=== PATIENT | female | born 1965 | race Caucasian/White ===

== ENCOUNTER 2017-05-06 09:54 | Inpatient (IN) | payer OTHER ==
[~2017-05-06] VITALS: Ht 180.3 cm; Wt 130.4 kg
[2017-05-06 10:25] LABS: BASO % 0.5 % (0.0-1.0); EOS # 0.1 10^3/uL (0.0-0.50); EOS % 1.8 % (0.0-3.0); IMMATURE GRANULOCYTE % 0.3 % (0-0); LYMPH # 1.2 10^3/uL (1.5-4.5); MEAN CORPUSCULAR HEMOGLOBIN 29.8 pg (27.0-33.0); MEAN CORPUSCULAR HGB CONC 32.5 g/dl (32.0-36.5); MEAN CORPUSCULAR VOLUME 91.7 fl (80.0-96.0); MONO # 0.7 10^3/uL (0.0-0.8); MONO % 8.6 % (0.0-5.0); NEUTROPHILS # 5.7 10^3/uL (1.8-7.7); NEUTROPHILS % 73.8 % (36.0-66.0); PLATELET COUNT, AUTOMATED 222 10^3/uL (150-450); RED CELL DISTRIBUTION WIDTH 13.9 % (11.5-14.5); WHITE BLOOD COUNT 7.7 10^3/uL (4.0-10.0)
[2017-05-06 10:53] LABS: ALBUMIN 3.2 GM/DL (3.2-5.2); ALBUMIN/GLOBULIN RATIO 1.07 (1.00-1.93); ALKALINE PHOSPHATASE 60 U/L (45-117); ALT/SGPT 61 U/L (12-78); ANION GAP 11 MEQ/L (8-16); AST/SGOT 46 U/L (7-37); BILIRUBIN,DIRECT 0.4 MG/DL (0.0-0.2); BILIRUBIN,TOTAL 2.6 MG/DL (0.2-1.0); BLOOD UREA NITROGEN 24 MG/DL (7-18); CALCIUM LEVEL 8.1 MG/DL (8.5-10.1); CARBON DIOXIDE LEVEL 22 MEQ/L (21-32); CHLORIDE LEVEL 108 MEQ/L (98-107); CREATININE FOR GFR 1.12 MG/DL (0.55-1.02); GLUCOSE, FASTING 137 MG/DL (70-105); POTASSIUM SERUM 4.1 MEQ/L (3.5-5.1); SODIUM LEVEL 141 MEQ/L (136-145); TOTAL PROTEIN 6.2 GM/DL (6.4-8.2)
[2017-05-06] MEDS ORDERED: DIGOXIN INJ 0.5 MG/2 ML AMP (J1160) IV STA (11:07)
[2017-05-06] MEDS ORDERED: METOPROLOL SUCC *XL* 25MG TAB (TopROL *XL*) PO ONE ×2 (11:15→17:45)
[2017-05-06] MEDS ORDERED: APIXABAN 5 MG TAB (ELIQUIS) PO ONE (11:15)
--- NOTE | 2017-05-06 11:28 | REP ---
AP portable chest: 05/06/2017. Comparison PA lateral chest 04/22/2017. Clinical history: Chest pain. AP semi-erect lordotic portable chest reviewed. Heart size is enlarged but magnified further by the lordotic portable technique. There is engorgement of the pulmonary veins. This suggests some venous hypertension. The aorta is without aneurysm. Airway is midline. CP angles are sharply defined. There is no gross effusion, although posterior and lower lung zones are poorly evaluated on a lordotic chest. No dense consolidation with air bronchograms. Mild basilar atelectatic change may be present. No nasir edema. Impression: 1. Enlargement of the cardiac silhouette with further magnification by lordotic portable chest. 2. Pulmonary venous hypertension without nasir edema, definite effusion or dense consolidation. Some basilar atelectatic change. Signed by Jeff Garcia MD 05/06/2017 08:29 P
[2017-05-06 11:32] LABS: INR 1.29
[2017-05-06] MEDS ORDERED: ONE-TAB33 PO (11:41)
[2017-05-06 11:47] LABS: FREE T4 1.26 NG/DL (0.76-1.46)
--- NOTE | 2017-05-06 12:35 | ECGEPIP ---
Stationary ECG Study [facility] - ED Test Date: 2017-05-06 Pat Name: VIJAY MATHEWS Department: Room: - Gender: F Options Advisor: lilian : 1965 Requested By: CECILE Marte Order Number: [id number] Reading MD: Ani Manning Measurements Intervals [place] Rate: 160 P: SD: 0 QRS: 56 QRSD: 98 T: 62 QT: 289 QTc: 472 Interpretive Statements ATRIAL FIBRILLATION WITH RAPID VENTRICULAR RESPONSE NONSPECIFIC T-WAVE ABNORMALITY ABNORMAL RHYTHM ECG LOW VOLTAGE LIMB NO PRIOR FOR COMPARISON Electronically Signed On 05-06-2017 12:35:41 EST by Ani Manning
[2017-05-06] MEDS ORDERED: DIGOXIN INJ 0.5 MG/2 ML AMP (J1160) IV ONE ×3 (17:45→21:15)
[2017-05-06] MEDS ORDERED: DIGOXIN 0.125 MG TAB PO ONE (19:15)
[2017-05-06] MEDS ORDERED: METOPROLOL TART 50 MG TAB PO ONE (19:15)
[2017-05-06] MEDS ORDERED: FUROSEMIDE 40 MG/4 ML VIAL (J1940) IV ONE (19:15)
[2017-05-06] MEDS ORDERED: zolPIDEM TARTRATE 5 MG TAB PO PRN (19:15)
[2017-05-06 20:00] VITALS: BP 119/93
[2017-05-06 20:10] LABS: CHOLESTEROL LEVEL 110 MG/DL (<200); TRIGLYCERIDES LEVEL 103 MG/DL (<150)
[2017-05-06] MEDS: APIXABAN 5 MG TAB (ELIQUIS) PO SCH (21:29)
[2017-05-06] MEDS: DOCUSATE SODIUM 100 MG CAP PO SCH (21:29)
--- NOTE | 2017-05-06 21:30 | HPE ---
DATE OF ADMISSION: 05/06/2017 ATTENDING PHYSICIAN: Chuck Erazo MD PRIMARY CARE PHYSICIAN: Ever Denise MD CHIEF COMPLAINT: Increasing shortness of breath, lower leg swelling, and new onset atrial fibrillation. 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 Ever Denise. Describes be able to walk considerable distances at the all day. 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 Since the beginning of April at the time she had a "flu shot" claims to have developed a nonproductive cough, slowly worsening effort dyspnea, weight gain. Was seen by her primary physician in mid April and given a cough suppressant and suggested a cardiology referral but the patient wished to defer this at that time. Over the course of the past few weeks has developed worsening shortness of breath, orthopnea, intermittently having to get up and sleep in a recliner the past 1 or 2 weeks. Becomes dyspneic even walking at a slow pace. Also described effort related, lightheadedness or faintness and worsening sense of strength. Reports increasing lower leg swelling with a total weight gain of 34 pounds over the course of the past month or so. Discussed this with her doctor who saw her this morning. Electrocardiogram was obtained showing new onset atrial fibrillation with a rapid ventricular response. She was advised to go directly to [facility] emergency room. Initially, evaluated by Dr. Shoaib Del Valle, was found to be in congestive heart failure with atrial fibrillation and rapid ventricular response. I recommended administration of digoxin 0.5 mg IV, metoprolol 50 mg by mouth, and Eliquis 5 mg. I accepted the patient for admission to hospital. OTHER CARDINAL CARDIAC SYMPTOMS: Denies any problem with effort related chest, jaw, or arm discomforts. Unaware of a previous abnormal EKG. 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 Had been a smoker since age 15 until 37 years of age. No more than one half pack per day. Claims not to have had a prior cough and never has had hemoptysis or pneumonia. Unaware of any allergy, sinus problems or asthma. No knowledge of prior rheumatic fever or heart murmur. No known hypertension or cardiomegaly. Has had a lifelong weight problem (weighed 190 pounds at age 16; maximum weight currently at 325 pounds, having gained 34 pounds in the past 1 - 2 months). As mentioned has had no awareness of her heart action. No previously documented rhythm disturbance. Does have a family history of premature sudden cardiac in her brother, age 52, attributed to myocardial infarction. Family history of atrial fibrillation. Her mother was on warfarin for many years. No history of congenital deafness. Drinks only one cup of caffeinated coffee, two cups of caffeinated tea, but avoids caffeinated soda. Will drink no more than one or two alcoholic beverages monthly. Remote history of thyroid dysfunction - (question) overactive. Given pills for a brief period. Only in the remote past. Avoids [id number] decongestants, energizers, or dietary aids. Effort related, lightheadedness or faintness recently only. Very remote faint post childbirth. No history of falling recently. Denies lateralizing neurological deficit, flank pain, hematuria or blue toe syndrome. No history of claudication. Previous varicose vein stripping 2 years ago. No history of phlebitis. Ankle swelling as mentioned above only the past several weeks. CORONARY RISK FACTORS: Obesity. Remote smoker. Family history of premature sudden cardiac /premature coronary disease. Borderline elevated cholesterol in the past. No known diabetes mellitus. OTHER KNOWN PAST MEDICAL HISTORY: One normal vaginal delivery. Remote tonsillectomy. Varicose vein stripping bilaterally as an outpatient in [place] 2 years ago. REVIEW OF SYSTEMS: Occasional headache, but no recent fevers, chills or night sweats. Wears corrective lenses. Has upper partial plate, but otherwise her own teeth. Denies any problems with dysphagia, reflux or heartburn. No abdominal pains. Has noticed a slight change in her bowel habit with her recent problems. No history of GI bleeding. Nocturia times one is chronic. No dysuria or hematuria. No history of kidney stones. No arthritic complaints. History of dry skin, but no rashes, lumps or bumps. No environmental allergies. All other systems review is negative. MEDICATIONS: Taking a multivitamin one a day menopause formula and had been receiving a cough suppressant that was not particularly effective for her problems. ALLERGIES: None known. PHYSICAL EXAMINATION: Constitutional: Morbidly obese pleasant middle-aged lady lying with the head of the bed elevated 45 degrees. No pallor or icterus. Vital signs: Heart rate 120 bpm and irregular, blood pressure 137/68 supine, 144/76 sitting with legs dependent (both arms. Respiratory rate 18 per minute, oxygen saturation 97% on room air. Afebrile. Weight 325 pounds, height 71 inches, body surface area 2.79 m2, BMI 45.3 Eyes: Normal conjunctiva and lids. No xanthelasma. ENT/mouth: Upper dental bridge. Normal oral moisture. No central cyanosis. Neck: Trachea midline. Thyroid not enlarged. Neck veins were significantly elevated approximately 12 cm above the sternal angle. Respiratory: Increased anteroposterior chest diameter with fairly good chest expansion. Few bibasilar inspiratory rales posteriorly. No expiratory rhonchi. Cardiovascular: Apical impulse not palpable. Heart sounds were somewhat distant and variable with her arrhythmia. Unable to detect a gallop or murmur. Normal carotid upstrokes, but variable volume related to her arrhythmia. Upper extremity pulses and pedal pulses were symmetrical and normal. Abdominal aorta and femoral pulses not palpable because of her obesity. No obvious varicose veins at this time, but has pitting edema extending from her feet up to her thighs and over her sacrum and lower lumbar spine. Extremities: No clubbing, peripheral cyanosis or splinter hemorrhages. GI: Grossly obese abdomen, soft, nontender with lower abdominal pannus. Unable to detect hepatosplenomegaly. Normal bowel sounds. Rectal examination was performed earlier by the ER physician and was negative for occult blood. Neuro/Psych: Bright, alert and oriented. Gave a lucid history. Eye, facial, and extremity movements were symmetrical and normal. No abnormal movements. Musculoskeletal: No obvious joint deformities. Normal-appearing muscular strength and tone. Normal spine curvature. INVESTIGATIONS: Portable upright chest x-ray reviewed independently from earlier this morning shows obvious cardiomegaly even allowing for this portable technique. Normal thoracic aorta but obvious pulmonary venous congestion and interstitial edema. EKG: A tracing taken upon her arrival today showed atrial fibrillation with rapid ventricular response averaging 160 bpm. Very low QRS voltages with somewhat slow precordial R-wave progression related to her body habitus. Subtle diffuse nonspecific ST/T-wave abnormalities. No clear obvious evidence of prior infarction. No prior EKG for comparison. Blood work taken earlier shows a hemoglobin of 13. Normal white blood cell count and platelet count. Her PT/INR were slightly elevated at 16.3/1.29, but normal PTT. Her electrolytes were normal. The BUN slightly elevated at 24, creatinine 1.12, random glucose 137. Abnormal liver function studies with a total bilirubin of 2.6. Direct bilirubin of 0.4, slightly elevated SGOT, but normal SGPT and alkaline phosphatase. Serum albumin 3.2. Normal serum calcium of 8.1. Ultra sensitive TSH was normal at 3.3. Pro BNP level was markedly elevated at 4598. Troponin I and urinalysis are pending at this time. PROVISIONAL DIAGNOSIS: 1. Heart failure (unspecified) - acute: The patient has obvious symptoms and signs of biventricular congestion of a marked degree with associated 34-pound weight gain in the past 4-6 weeks, believed to be related to underlying hypertension versus cardiomyopathy of obesity, aggravated by recent onset of atrial fibrillation with rapid ventricular response. She will be admitted to a telemetry unit for close observation. She will be maintained on a modest salt, fluid and caloric diet. Lasix will be administered every 6 hours to ensure a net negative fluid balance of 1500 mL daily as long she has signs of congestion. We will also start low-dose spironolactone. Efforts to control her rhythm discussed below. She will also be started on oral anticoagulation for her arrhythmia that should obviously suffice for prophylaxis against deep venous thrombosis (DVT). An echocardiogram/Doppler study will be obtained to further define cardiac chamber sizes and function. We will request the assistance of the cardiac rehabilitation program for CHF education and gradual ambulation. Her chemistry will be monitored closely. 2. Atrial fibrillation/recent onset: Undoubtedly, this is a reflection of underlying structural heart disease. It is possible a recent upper respiratory tract infection may have triggered her arrhythmia. Despite the rapidity of her rhythm disturbance she is actually unaware of her heart action. Fortunately, she has been free of symptom or sign of embolic phenomenon. Our plan will be to obtain an echocardiogram/Doppler study again to further define her underlying heart disease. I do not detect a murmur to suggest mitral insufficiency. Digoxin and metoprolol tartrate will be used in combination to control of ventricular response. As mentioned above she will be started on Eliquis 5 mg twice a day. Note is made of her normal thyroid function. Efforts to consider restoring her sinus mechanism will be determined by her echocardiographic results. 3. Abnormal EKG: Has multiple coronary risk factors including her obesity, history of hypercholesterolemia and family history of premature coronary heart disease as well as her former smoking history. Does not have any clear symptoms to suggest myocardial ischemia. Her EKG, ST/T-wave abnormalities of course are nonspecific. Troponin I from earlier this morning is pending. Will obtain a followup EKG and troponin I in the morning. The most important focus would be relief of her congested state as well as control of her ventricular response. She will be on protective combination metoprolol and Eliquis at this time. 4. Cardiomegaly: As mentioned her portable upright chest x-ray shows a significant increased cardiac silhouette, likely related to cardiac enlargement related to her morbid obesity +/- hypertension. Antifailure measures as mentioned above. Echocardiogram/Doppler study will be obtained. Serial EKGs and troponin I have been requested. 5. Sleep disturbance: With her morbid obesity, she does describe snoring history and restless sleeping with daytime sleepiness, certainly suggestive of obstructive sleep apnea. Our plan would be to consider at least a screening nocturnal oximetry once we have relieved her congested state. 6. Morbid obesity (BMI 45.3): We have discussed frankly the negative impact of this major problem on her cardiopulmonary well-being. Undoubtedly, it is playing a major role in causing her cardiac enlargement, predisposition to atrial fibrillation and to her congestive heart failure. The crucial importance of dietary efforts and regular graduated exercise to lose weight has been emphasized. Should these noninvasive measures be unsuccessful, we would encourage she at least seek bariatric consultation to hear of potential alternatives. I have discussed my impressions and plans with the patient in detail who appears to understand and agree. I anticipate she will be in hospital for least 4 or 5 days.
[2017-05-07] VITALS (8 sets, daily range): BP systolic 122–164; BP diastolic 65–92
[2017-05-07] MEDS: FUROSEMIDE 40 MG/4 ML VIAL (J1940) IV SCH ×4 (00:52→17:02)
[2017-05-07] MEDS: METOPROLOL TART 50 MG TAB PO SCH ×4 (00:53→17:13)
[2017-05-07 06:34] LABS: ANION GAP 5 MEQ/L (8-16); BLOOD UREA NITROGEN 24 MG/DL (7-18); CALCIUM LEVEL 8.4 MG/DL (8.5-10.1); CARBON DIOXIDE LEVEL 33 MEQ/L (21-32); CHLORIDE LEVEL 104 MEQ/L (98-107); CREATININE FOR GFR 1.19 MG/DL (0.55-1.02); GLOMERULAR FILTRATION RATE 50.3 (>51); GLUCOSE, FASTING 81 MG/DL (70-105); PHOSPHORUS LEVEL 4.2 MG/DL (2.5-4.9); POTASSIUM SERUM 3.7 MEQ/L (3.5-5.1); SODIUM LEVEL 142 MEQ/L (136-145)
[2017-05-07] MEDS: DIGOXIN 0.25 MG TAB PO SCH (08:48)
[2017-05-07] MEDS: APIXABAN 5 MG TAB (ELIQUIS) PO SCH ×2 (08:48→21:09)
[2017-05-07] MEDS: DOCUSATE SODIUM 100 MG CAP PO SCH ×2 (08:48→21:07)
[2017-05-07] MEDS: SPIRONOLACTONE 12.5MG PER 1/2 TABLET PO SCH (08:48)
--- NOTE | 2017-05-07 09:33 | ECGEPIP ---
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 Low voltages with slow precordial R-wave progression, And persistent S waves in V5 and V6; body habitus versus pulmonary disease. Rule out prior septal injury. Nonspecific ST/T-wave abnormalities. Slower rate than 05/06/17. Electronically Signed On 05-07-2017 9:32:51 EST by Chuck Erazo
[2017-05-07] MEDS: POTASSIUM CHLORIDE 10 MEQ SR TABLET PO SCH ×2 (17:13→21:11)
--- NOTE | 2017-05-07 17:15 | IPN ---
DATE: 05/07/2017 CARDIOLOGY PROGRESS NOTE SUBJECTIVE: The patient feels dramatically improved from her admission. Breathing and dependent edema have improved with her negative fluid balance. Has been up in the room without lightheadedness or dizziness. Continues to be free of any awareness of heart action or any chest discomfort. Appears to be tolerating her medications without adverse effect. OBJECTIVE: Obese, barrel-chested, middle-aged lady, lying comfortably with the head of the bed elevated 30 degrees. Heart rate 86 beats per minute (BPM) and irregular, blood pressure 118/68, 122/66 sitting with legs dependent, respiratory 18 per minute, oxygen saturation 95% on room air. Afebrile. Weight today is down almost 6 kg from yesterday with recorded negative fluid balance to date in hospital of approximately 6 liters of fluid. No pallor or icterus. Normal oral moisture. No central cyanosis. Trachea midline. Neck veins still 10-12 cm above the sternal angle. Increased anteroposterior chest diameter with improved air entry over both lung zazueta. No current adventitious sounds. Apical impulse not palpable. Heart sounds still distant with slower rate. We still cannot order picker any sign of heart murmur. Soft, obese abdomen. Continues to have impressive pitting edema of both lower extremities. 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 EKG: Tracing today shows again underlying atrial fibrillation with a controlled ventricular response averaging 95 beats per minute. Still shows low voltages with slow precordial R-wave progression and persistent S waves in V5 and V6, in keeping with her body habitus versus pulmonary disease. Could not rule out a prior septal injury. Nonspecific ST/T-wave abnormalities, perhaps somewhat improved from her tracing yesterday showing a heart rate of 160. LABORATORY DATA: With her diuresis has developed a slight metabolic alkalosis with bicarbonate up to 33. Potassium has decreased to 3.7. BUN and creatinine are stable at 24 and 1.2. Fasting glucose this morning 81. Albumin 3.0. Calcium 8.4. Troponin I level today again was negative. Urinalysis was normal. No evidence of microscopic hematuria. IMPRESSION/PLAN: 1. Heart failure (unspecified)//acute: Has made impressive progress over the course the past 24 hours. As mentioned above, remarkable negative fluid balance and diuresis with even low-dose diuretic therapy. Has tolerated this with development of only slight metabolic alkalosis and a drop in her potassium. We will start her on low-dose potassium chloride to correct this. BUN and creatinine are stable despite the negative fluid balance. An echocardiogram/Doppler study was done earlier today and will be reviewed personally. Cardiac rehabilitation program has yet to visit with her for congestive heart failure (CHF) education. At this point, we will plan on continued combination digoxin, bisoprolol, intravenous (IV) Lasix, and spironolactone. 2. Atrial fibrillation (persistent): With combination digoxin and metoprolol, her ventricular response at this time is controlled. We will review her echocardiogram and assess left atrial size and likelihood of her arrhythmia reversing with relief of her congested state. In the meantime, remains on combination digoxin and metoprolol and Eliquis for prophylaxis against systemic thromboembolic event. Has not experienced any bleeding complication. 3. Abnormal EKG: Remains free of symptomatic myocardial ischemia. Repolarization abnormalities are less with her slower heart rate, and serial Troponin I levels are negative. Continues on protective metoprolol and Eliquis as mentioned. 4. Cardiomegaly: We are hoping to clarify this with her echocardiogram, which was done earlier today. 5. Sleep disturbance: We have not documented any oxygen desaturations while she has been in hospital to date, but her his history is suggestive of obstructive sleep apnea with snoring and daytime sleepiness. As mentioned, prior to her discharge home, once she is at her effective dry weight, our plan is to obtain an official nocturnal oximetry as a screen. 6. Morbid obesity (body mass index [BMI] 43.5): As mentioned above, has lost a tremendous amount of weight within 24 hours because of her diuretic therapy. We have again discussed the crucial importance of a low-carbohydrate diet, especially with her slight glucose intolerance. Will continue with her parenteral diuretic therapy for the time being and, hopefully cardiac rehabilitation will be able to visit with her tomorrow. I still anticipate she will be in hospital for an additional 48 hours.
--- NOTE | 2017-05-07 18:14 | ECHO ---
DATE OF PROCEDURE: 05/07/2017 AGE: 52 GENDER: Female. HEIGHT: 71 inches. WEIGHT: 324 pounds BODY SURFACE AREA: 2.56 meters squared inpatient PCU room 3214. REFERRING PHYSICIAN: Dr. Erazo with copy to Dr. Denise INDICATION: Heart failure (unspecified) new onset atrial fibrillation. MEASUREMENTS: 2-D measurements: RV - 5.2 cm LV- 5.6 cm Septum 1.0 cm Posterior wall 1.0 cm Aortic root 3.4 cm Proximal ascending aorta 3.6 cm LA- 4.4 cm LVEF- 35-40% Doppler measurements: AV - 0.98 m/s LVOT- 0.8 m/s LVOT diameter- 2.3 cm MV-E 96 Early mitral deceleration time 109 milliseconds E prime-10 E/Eprime ratio 9.6 PV 0.7 m/s Pulmonary artery acceleration time 77 milliseconds PASP- 47 mmHg IVC 2.9 cm COMMENTS: Underlying atrial fibrillation with controlled ventricular response. No intraventricular conduction disturbance. At least moderately prominently dilated left atrium (from the apical four-chamber projection). The left ventricle was at least mild to moderately dilated. Right heart chambers were prominently dilated. LV wall thickness was normal. On real-time imaging from the parasternal and apical projections there appeared to be proximal septal akinesis. Other rosas were mild to moderately hypokinetic. Normal with "low flow" appearance to leaflet motion. Three equal size aortic cusps with marginally thickened cusp edges and adequate cusp separation but premature cusp closure in keeping with a reduced forward stroke volume. Normal aortic root size with slightly dilated proximal ascending aorta. No apparent intracardiac mass or pericardial effusion. Color flow Doppler study taken from the parasternal and apical projection showed trace aortic, at least mild mitral and moderate to moderately severe tricuspid insufficiency. Guided continuous wave Doppler of her aortic valve showed a normal peak systolic velocity against LV outflow tract obstruction. Pulsed and continuous wave Doppler of her LV inflow tract taken from the apical four-chamber projection showed normal diastolic filling velocities against mitral stenosis. There was only early diastolic / passive filling pattern as we would expect with atrial fibrillation. There was a restrictive impairment of LV diastolic function with significantly abbreviated early mitral deceleration time. Pulsed and continuous wave Doppler of her pulmonary trunk showed a normal peak systolic velocity against RV outflow tract obstruction. Her pulmonary acceleration time was abbreviated consistent with significantly elevated pulmonary vascular resistance and least moderate pulmonary hypertension. We attempted to further estimate her right ventricular systolic pressure using guided continuous wave Doppler of her tricuspid valve but could not get a clear spectral envelope despite the observed insufficiency because of the eccentric nature of the regurgitate. Her inferior vena cava was prominently dilated with virtually absent respiratory collapse in keeping with an elevated central venous pressure. CONCLUSIONS: At least mildly dilated left ventricle with septal akinesis but otherwise global mild to moderate hypokinesis at least moderate impairment of global resting systolic function. At least moderately dilated left atrium with Doppler of features in keeping with an elevated mean left atrial pressure. Moderately dilated and hypokinetic right heart chambers with Doppler evidence of at least moderate pulmonary hypertension. Prominently dilated inferior vena cava with absent respiratory collapse consistent with a central venous pressure of at least 20 plus mmHg. Subtle aortic valvular sclerosis without stenosis and only trace insufficiency. Slightly dilated proximal ascending aorta. Normal-appearing mitral valvular apparatus with mild insufficiency.
[2017-05-08] VITALS (7 sets, daily range): BP systolic 128–141; BP diastolic 64–83
[2017-05-08 06:10] LABS: ALBUMIN 2.8 GM/DL (3.2-5.2); CALCIUM LEVEL 8.2 MG/DL (8.5-10.1); CREATININE FOR GFR 1.05 MG/DL (0.55-1.02); GLOMERULAR FILTRATION RATE 58.1 (>51)
[2017-05-08] MEDS: FUROSEMIDE 40 MG/4 ML VIAL (J1940) IV SCH ×4 (06:50→17:02)
[2017-05-08] MEDS: METOPROLOL TART 50 MG TAB PO SCH ×4 (06:50→17:01)
[2017-05-08] MEDS: DIGOXIN 0.25 MG TAB PO SCH (09:07)
[2017-05-08] MEDS: DOCUSATE SODIUM 100 MG CAP PO SCH ×2 (09:07→20:19)
[2017-05-08] MEDS: APIXABAN 5 MG TAB (ELIQUIS) PO SCH ×2 (09:07→20:19)
[2017-05-08] MEDS: SPIRONOLACTONE 12.5MG PER 1/2 TABLET PO SCH (09:08)
[2017-05-08] MEDS: POTASSIUM CHLORIDE 10 MEQ SR TABLET PO SCH ×3 (09:08→16:17)
[2017-05-08] MEDS ORDERED: ACETAMINOPHEN TAB 650MG DOSE (2X325MG) PO PRN (11:15)
[2017-05-08] MEDS ORDERED: SLF 3 ML SYR IV PRN (17:15)
[2017-05-08] MEDS: SLF 3 ML SYR IV SCH (20:21)
[2017-05-08] MEDS ORDERED: LISINOPRIL 5 MG TAB PO SCH (21:00)
--- NOTE | 2017-05-09 01:07 | IPN ---
DATE OF SERVICE: 05/08/2017 Cardiology Progress Note SUBJECTIVE: The patient has been up walking short distances in the junior without shortness of breath, chest discomfort or dizziness. Has been tolerating her medications well and continues to diuresis without problems. OBJECTIVE: Pleasant, morbidly obese, middle-aged woman lying comfortably with the head of bed elevated 30 degrees. No pallor or cyanosis. Normal oral moisture. Heart rate 88 beats per minute and irregular, blood pressure 115/60 supine, unchanged upon sitting with legs dependent, respiratory rate 16, oxygen saturation 97%. Afebrile. Not recorded. Normal oral moisture. Trachea midline. Neck veins remain approximately 8 cm above the sternal angle. Increased anteroposterior chest diameter with good air entry over both lung zazueta with no current abnormal pulmonary adventitious sounds. Apical impulse not palpable. Heart sounds variable. No audible murmur. Soft abdomen. Currently has pitting edema three-quarters up both lower legs, but not above her knees - a clear improvement. property assessment monitor: This shows controlled ventricular response to her atrial fibrillation for the most part. Echocardiogram yesterday may show at least a mildly dilated and globally hypokinetic left ventricle with left ventricular ejection fraction (LVEF) 35-40% . Suspected to be related to her rapid ventricular response atrial fibrillation (tachycardia mediated cardiomyopathy). Right heart chamber sizes were moderately dilated and hypokinetic with Doppler evidence of at least moderately severe pulmonary hypertension. Her inferior vena cava was markedly dilated with reduced respiratory collapse consistent with markedly elevated central venous pressure. Her mitral valve appeared to be normal with mild insufficiency likely related to her global left ventricular hypokinesis. Subtle aortic valvular sclerosis with no more than very mild insufficiency and a mildly dilated proximal ascending aorta. No pericardial effusion. Despite a negative fluid balance yesterday of 3880 mL, chemistry this morning showed electrolyte balance with normalized bicarbonate and improved potassium on her potassium chloride replacement therapy. Despite her diuresis, BUN and creatinine have improved at 19 and 1.0 respectively. IMPRESSION/PLAN: 1. Heart failure (systolic and diastolic/acute): Findings likely related to combination of her chronic obesity, as well as a tachycardia mediated cardiomyopathy. We are cautiously optimistic her global systolic function will improve with control of her ventricular response to her atrial fibrillation. Currently on protective digoxin, metoprolol, and spironolactone. We are going to introduce at least low-dose lisinopril. Her metoprolol therapy will be switched to twice a day starting tomorrow morning. We are planning to switch her intravenous (IV) furosemide to oral torsemide 20 mg daily beginning in the morning. 2. Atrial fibrillation (persistent): As mentioned, her current combination digoxin and metoprolol is controlling her ventricular response. Left atrial size is not such that an attempt at cardioversion could not be made. There is a good chance with improved left ventricular function as we anticipate with time that her rhythm may very well convert anyway. For the time being, she remains on Eliquis and has not experienced any bleeding problems. 3. Abnormal EKG: Despite her risk factors, has remained free of symptomatic myocardial ischemia even with ambulation of the junior. Will be receiving protective combination metoprolol, lisinopril, and Eliquis. 4. Tachycardia mediated cardiomyopathy: As discussed above. 5. Currently controlled on combination medical therapy. Undoubtedly this has contributed to her left ventricular dysfunction and predisposition to atrial fibrillation. 6. Cor pulmonale (chronic): Echocardiographic findings of moderately dilated right heart chambers are consistent with pulmonary hypertension of some chronicity. With her documented history of snoring, restless sleep, and daytime sleepiness, I have no doubt she does have obstructive sleep apnea. We will plan on obtaining a nocturnal oximetry tomorrow night prior to possible discharge on Friday. 7. Morbid obesity (body mass index (BMI) 43.5): Has met with the dietitian today and appears to be motivated to affect a change. I am cautiously optimistic she will tolerate the planned medication changes mentioned above. We have tried to make these agents run on a twice a day schedule. I suspect she will be able to be discharged 05/10/2017. She continues to do well with cardiac rehabilitation education. [facility]
[2017-05-09 04:00] VITALS: BP 126/75
[2017-05-09] MEDS: SLF 3 ML SYR IV SCH ×3 (04:56→21:00)
[2017-05-09 05:27] LABS: MEAN CORPUSCULAR HEMOGLOBIN 29.4 pg (27.0-33.0); MEAN CORPUSCULAR HGB CONC 32.6 g/dl (32.0-36.5); MEAN CORPUSCULAR VOLUME 90.3 fl (80.0-96.0); PLATELET COUNT, AUTOMATED 208 10^3/uL (150-450); RED CELL DISTRIBUTION WIDTH 13.9 % (11.5-14.5); WHITE BLOOD COUNT 3.6 10^3/uL (4.0-10.0)
[2017-05-09 05:45] LABS: ALBUMIN 2.9 GM/DL (3.2-5.2); ALBUMIN/GLOBULIN RATIO 1.07 (1.00-1.93); ALKALINE PHOSPHATASE 50 U/L (45-117); ALT/SGPT 37 U/L (12-78); ANION GAP 7 MEQ/L (8-16); AST/SGOT 16 U/L (7-37); BILIRUBIN,TOTAL 2.2 MG/DL (0.2-1.0); BLOOD UREA NITROGEN 17 MG/DL (7-18); CALCIUM LEVEL 8.4 MG/DL (8.5-10.1); CARBON DIOXIDE LEVEL 33 MEQ/L (21-32); CHLORIDE LEVEL 102 MEQ/L (98-107); CREATININE FOR GFR 0.93 MG/DL (0.55-1.02); GLOMERULAR FILTRATION RATE > 60.0 (>51); GLUCOSE, FASTING 102 MG/DL (70-105); POTASSIUM SERUM 3.9 MEQ/L (3.5-5.1); SODIUM LEVEL 142 MEQ/L (136-145); TOTAL PROTEIN 5.6 GM/DL (6.4-8.2)
[2017-05-09] MEDS ORDERED: METOPROLOL TARTRATE 100 MG TAB PO SCH (06:00)
[2017-05-09 08:00] VITALS: BP 122/69
[2017-05-09] MEDS: METOPROLOL SUCC (TopROL XL) 100MG *XL* TAB PO SCH (08:54)
[2017-05-09] MEDS: DIGOXIN 0.25 MG TAB PO SCH (08:54)
[2017-05-09] MEDS: SPIRONOLACTONE 12.5MG PER 1/2 TABLET PO SCH (08:54)
[2017-05-09] MEDS: POTASSIUM CHLORIDE 10 MEQ SR TABLET PO SCH ×2 (08:55→21:00)
[2017-05-09] MEDS: TORSEMIDE 20 MG TAB PO SCH (08:55)
[2017-05-09] MEDS: DOCUSATE SODIUM 100 MG CAP PO SCH ×2 (08:55→20:59)
[2017-05-09] MEDS: APIXABAN 5 MG TAB (ELIQUIS) PO SCH ×2 (08:55→21:00)
--- NOTE | 2017-05-09 09:18 | REP ---
PA and lateral chest: Comparison is the portable chest dated 05/06/2017. The pulmonary vascular engorgement has resolved. There is cardiomegaly, unchanged. The abdifatah, mediastinum, and bony thorax are unremarkable. There is no pleural effusion. Signed by Brooks Hale MD 05/09/2017 09:09 A
[2017-05-09 12:00] VITALS: BP 106/81
[2017-05-09 16:00] VITALS: BP 127/86
--- NOTE | 2017-05-09 16:37 | IPN ---
DATE: 05/09/2017 at 4:12 p.m. SUBJECTIVE: Patient has been ambulating the hallways in the progressive care unit without any dyspnea. No orthopnea or paroxysmal nocturnal dyspnea (PND). She is aware that she still has ongoing bilateral leg edema. No chest pain or chest discomfort. No dizziness or lightheadedness. She is not aware of any palpitations. Overall she feels well. PHYSICAL EXAMINATION: A pleasant, morbidly obese woman who was not in any respiratory or psychologic distress. Temperature 97.4, pulse 63 (irregularly irregular), respiratory rate 16, blood pressure (BP) 106/81. Jugular venous pulsations were at 8 cm. First and second heart sounds were variable in intensity. No S3 appreciated. No murmurs appreciated. Respiratory expansion effort was good. No crackles or wheezes. Abdomen was soft and nontender with normal bowel sounds. Pitting edema of 1 cm was present at mid and distal tibial levels bilaterally. Intake and output for the 24 hours of 05/08/2017 showed net negative 2950 mL. Thus far today, she is net negative 1840 mL. Weight today was recorded as 136.7 kg. Laboratory work 05/09/2017 was reviewed: Sodium 142, potassium 3.9, chloride 104, CO2 of 33, BUN 17, creatinine 0.93, estimated GFR greater than 60, glucose 102. Total bilirubin elevated at 2.2. AST normal, ALT normal, alkaline phosphatase normal, albumin 2.9. ASSESSMENT AND PLAN: 1. Dilated cardiomyopathy, mostly likely [place] Heart Association (NYHA) functional class 2 at present, although she has been relatively sedentary here in the hospital. She remains decompensated on examination. I suspect that she has, at least in part, a tachycardia-mediated cardiomyopathy. The plan will be to reassess left ventricular (LV) systolic function objectively with a multigated acquisition (MUGA) scan about 3 months from now. Also of note, she will be considered for evaluation of her coronary artery disease to distinguish between nonischemic verus ischemic cardiomyopathy, and as an outpatient I will discuss with her the options of cardiac nuclear stress test (NST) versus diagnostic coronary angiography. Patient will start sacubitril/valsartan beginning tomorrow. Spironolactone will be discontinued, as she will be started on Entresto tomorrow. Continue metoprolol succinate 200 mg daily and digoxin. Metoprolol tartrate was discontinued. Patient will attend cardiac rehabilitation as an outpatient. Continue torsemide 20 mg daily. Continue potassium chloride 20 mEq twice a day. 2. Acute on chronic systolic and diastolic heart failure. As per dilated cardiomyopathy category above. 3. Persistent atrial fibrillation. Heart rate control is quite variable, but heart rate control has improved quite considerably since admission. Metoprolol tartrate was discontinued. She will continue on metoprolol succinate, currently 200 mg once daily. Also continue digoxin 0.25 mg daily for now. Continue Eliquis. 4. Morbid obesity. Patient has been placed on a DASH diet. She will progress in cardiac rehabilitation. 5. Snoring. Now that patient is so much better with regard to heart failure, the plan will be to obtain nocturnal oximetry while she is in hospital to screen for obstructive sleep apnea.
--- NOTE | 2017-05-09 16:54 | ECGEPIP ---
Stationary ECG Study [facility] Test Date: 2017-05-09 Pat Name: VIJAY MATHEWS Department: Room: [place] [address] Gender: F Program Project Analyst: [place] : [id number] Requested By: Chuck Erazo Order Number: [id number] Reading MD: Donell Joseph Measurements Intervals [place] Rate: 109 P: [place]: 0 QRS: 49 QRSD: 86 T: 118 QT: 288 QTc: 389 Interpretive Statements ATRIAL FIBRILLATION WITH RAPID VENTRICULAR RESPONSE Low limb lead voltages. Poor R-wave progression, nonspecific T-wave abnormalities. Electronically Signed On 05-09-2017 16:53:53 EST by Donell Joseph
[2017-05-09 20:00] VITALS: BP 114/73
[2017-05-09 23:59] VITALS: BP 115/77
[2017-05-10 04:00] VITALS: BP 111/82
[2017-05-10] MEDS: SLF 3 ML SYR IV SCH ×3 (06:00→20:13)
[2017-05-10 06:13] LABS: ALBUMIN 2.9 GM/DL (3.2-5.2); ANION GAP 5 MEQ/L (8-16); BLOOD UREA NITROGEN 18 MG/DL (7-18); CALCIUM LEVEL 8.3 MG/DL (8.5-10.1); CARBON DIOXIDE LEVEL 34 MEQ/L (21-32); CHLORIDE LEVEL 103 MEQ/L (98-107); CREATININE FOR GFR 0.96 MG/DL (0.55-1.02); GLOMERULAR FILTRATION RATE > 60.0 (>51); GLUCOSE, FASTING 95 MG/DL (70-105); PHOSPHORUS LEVEL 3.8 MG/DL (2.5-4.9); POTASSIUM SERUM 4.2 MEQ/L (3.5-5.1); SODIUM LEVEL 142 MEQ/L (136-145)
[2017-05-10 08:30] VITALS: BP 112/63
[2017-05-10] MEDS: APIXABAN 5 MG TAB (ELIQUIS) PO SCH ×2 (08:58→20:13)
[2017-05-10] MEDS: DOCUSATE SODIUM 100 MG CAP PO SCH ×2 (08:58→20:14)
[2017-05-10] MEDS: DIGOXIN 0.25 MG TAB PO SCH (08:58)
[2017-05-10] MEDS: METOPROLOL SUCC (TopROL XL) 100MG *XL* TAB PO SCH (08:58)
[2017-05-10] MEDS: TORSEMIDE 20 MG TAB PO SCH (08:58)
[2017-05-10] MEDS: POTASSIUM CHLORIDE 10 MEQ SR TABLET PO SCH ×2 (08:59→20:13)
[2017-05-10 12:00] VITALS: BP 108/82
--- NOTE | 2017-05-10 12:06 | NOCOX ---
DATE OF PROCEDURE: 05/09/2017 to 05/10/2017 Nocturnal oximetry study was performed on room air. The patient's resting oxygen saturation was 97% with a heart rate of 96. The patient had variable desaturations throughout the evening. Total recording time was 6 hours and 20 minutes. There were variable desaturations throughout the evening with the longest continuous time with an oxygen saturation less than 88% for 42 seconds, total time with an oxygen saturation less than 88% was 3 minutes and 6 seconds. Heart rate ranged from 48 to 128. Oxygen saturations ranged from 84% to 99%. Heart rate variability associated with oxygen desaturations. IMPRESSION: Variable desaturations without prolonged hypoxia is concern for obstructive sleep apnea. Would recommend in-lab nocturnal polysomnogram.
[2017-05-10 16:00] VITALS: BP 116/82
[2017-05-10 19:42] VITALS: BP 110/60
--- NOTE | 2017-05-10 20:08 | IPN ---
DATE: 05/10/2017 Mrs. Gisela Rivas was seen earlier this morning. She was sitting in the chair in no acute distress at rest. She stated she feels better since her admission. She has no prior cardiac history before being admitted here on 05/06/[address] Erazo. She has been having shortness of breath with activities, including pedal edema, orthopnea, and cough, and when she presented to the emergency room (ER) she was found to be in atrial fibrillation with a rapid ventricular rate and findings consistent with congestive heart failure. She had an echocardiogram that revealed an left ventricular ejection fraction (LVEF) estimated to be 25-30%. She was started on treatment, and she stated she feels better. She has not been having any orthopnea, and her cough has improved as well as her pedal edema. This morning, she was started on Entresto. She is already on beta willie with metoprolol succinate and a diuretic. She is on anticoagulation therapy in view of her atrial fibrillation. PHYSICAL EXAMINATION: Patient is alert and oriented in no acute distress at rest and very pleasant. Her blood pressure earlier today was 112/63 with a pulse of 88, respirations 18, and her maximum temperature is 98.5 degrees Fahrenheit with an oxygen saturation of 94% on room air. She has a negative fluid balance of 2.5 liters on 2016. Her weight yesterday was 136.7 kg and today is 135.8 kg. HEAD, EYES, EARS, NOSE, AND THROAT: Atraumatic. NECK: Supple. I could not appreciate any jugular venous distention (JVD) while sitting up in a chair. LUNGS: Did not reveal any wheezing or crackles. HEART: Did not reveal any rub or murmur. The point of maximal impulse (PMI) is displaced inferiorly and laterally. ABDOMEN: Unremarkable. EXTREMITIES: Revealed +2 bilateral lower leg and pedal edema. NEUROLOGIC: Negative for focal deficit. LABORATORY DATA: BMP done today revealed a sodium of 142, potassium 4.2, chloride 103, CO2 of 34, BUN 18, creatinine 0.96, GFR more than 60, fasting glucose 95, calcium 8.3. Albumin 2.9. CBC revealed WBC 3.5, hemoglobin 13.3, hematocrit 40.8, and platelets 208,000. Chest x-ray on 05/09/2017 revealed left cardiomegaly, and there was no manifestation of heart failure. Electrocardiogram done on 05/09/2017 revealed atrial fibrillation at 109 beats per minute, low-voltage QRS complexes, borderline low-voltage QRS complexes noted in the limb leads. No specific ST-T abnormalities. Poor R-wave progression noted mainly in the right precordial leads. Mrs. Gisela Rivas has been stable from a cardiac point of view, and her symptoms have improved significantly. IMPRESSION: Mrs. Rivas is doing fine on current medication and her symptomatology improved significantly and she is now out of heart failure. Atrial fibrillation seems to be under fair control. She was started today on ENTRESTO and she will continue the same. Will monitor her vital signs. The plan is to discharge her tomorrow, 05/11/2017, or on 05/12/2017, if her blood pressure remains stable. She will continue with the diuretics and while in the hospital will monitor closely her BUN, creatinine and serum potassium. Upon discharge, she will follow with Dr. Joseph/Castro' office. She also will follow with her primary, Dr. Ever Denise. [facility]
[2017-05-10] MEDS: ENTRESTO 24-26MG TABLET (SACUBITRIL/VALSARTAN) PO SCH (20:13)
[2017-05-11 00:40] VITALS: BP 110/70
[2017-05-11 04:33] VITALS: BP 110/80
[2017-05-11] MEDS: SLF 3 ML SYR IV SCH ×3 (05:57→21:05)
[2017-05-11 06:14] LABS: ALBUMIN 2.9 GM/DL (3.2-5.2); ANION GAP 6 MEQ/L (8-16); BLOOD UREA NITROGEN 17 MG/DL (7-18); CALCIUM LEVEL 8.6 MG/DL (8.5-10.1); CARBON DIOXIDE LEVEL 32 MEQ/L (21-32); CHLORIDE LEVEL 102 MEQ/L (98-107); CREATININE FOR GFR 0.91 MG/DL (0.55-1.02); GLOMERULAR FILTRATION RATE > 60.0 (>51); GLUCOSE, FASTING 91 MG/DL (70-105); PHOSPHORUS LEVEL 3.2 MG/DL (2.5-4.9); POTASSIUM SERUM 4.4 MEQ/L (3.5-5.1); SODIUM LEVEL 140 MEQ/L (136-145)
[2017-05-11] MEDS: DOCUSATE SODIUM 100 MG CAP PO SCH ×2 (08:27→21:02)
[2017-05-11] MEDS: DIGOXIN 0.25 MG TAB PO SCH (08:27)
[2017-05-11] MEDS: APIXABAN 5 MG TAB (ELIQUIS) PO SCH ×2 (08:27→21:03)
[2017-05-11] MEDS: TORSEMIDE 20 MG TAB PO SCH (08:28)
[2017-05-11] MEDS: POTASSIUM CHLORIDE 10 MEQ SR TABLET PO SCH ×2 (08:29→21:04)
[2017-05-11] MEDS: METOPROLOL SUCC (TopROL XL) 100MG *XL* TAB PO SCH (08:29)
[2017-05-11] MEDS: ENTRESTO 24-26MG TABLET (SACUBITRIL/VALSARTAN) PO SCH ×2 (08:33→21:03)
--- NOTE | 2017-05-11 12:33 | IPN ---
DATE OF SERVICE: 05/11/2017 Mrs. Gisela Rivas was seen earlier today. She was sitting in a chair in no acute distress at rest. She stated she feels much better. She has been ambulating on the nursing statin. Her shortness of breath and pedal edema have improved. She has not been coughing. She denies any orthopnea. There is no report of bleeding. Yesterday, she was started on the Entresto, and it seemed that so far she has been doing good. Her blood pressure has been stable, as well as her BUN and creatinine and serum potassium. She was initially admitted on 05/06/[address] Erazo. Sent to the emergency room (ER) by her primary because she was in atrial fibrillation and congestive heart failure. She had an echocardiogram on 05/06/2017, and it revealed a left ventricular ejection fraction (LVEF) estimated at 35% to 40%. No significant valvular heart disease. On physical examination, the patient is alert and oriented, in no acute distress at rest. Her vital signs reveal a blood pressure of 123/70, with a pulse of 74-91, respiration 18, and her maximum temperature is 98.2 degrees Fahrenheit with an oxygen saturation of 95% on room air. Examination of the head: Atraumatic. NECK: Supple. No jugular venous distention (JVD) while sitting up in a chair. No carotid bruits. LUNGS: Did not reveal any wheezing or crackles. HEART EXAMINATION: Revealed irregular heart sounds without gallops. The point of maximal impulse (PMI) is displaced inferiorly and laterally. There is no rub. I could not appreciate any murmurs. ABDOMEN: Is unremarkable. EXTREMITIES: Revealed trace to +1 bilateral lower leg edema. NEUROLOGICAL EXAMINATION: Is negative for focal deficit. LABORATORIES: BMP revealed a sodium of 140, potassium 4.4, chloride 102, CO2 32, BUN 17, creatinine 0.91, GFR more than 60, fasting glucose 91, calcium 8.2, phosphorus 3.2, and albumin 2.9. CBC revealed a WBC of 3.6, hemoglobin 13.3, hematocrit 40.8, and platelets 208,000. Telemetry revealed atrial fibrillation with a controlled ventricular rate. Mrs. Gisela Rivas seems to be stable from a cardiac condition, out of heart failure that was similar to a left ventricular systolic dysfunction where the left ventricular ejection fraction (LVEF) is admitted to be 35% to 40%. That was thought to be probably tachycardia-induced because of the atrial fibrillation. She will need a further cardiac evaluation looking for underlying coronary artery disease. I went over the findings on the echocardiogram with her, upon her request, as well as her overnight oximetry. I also went over her medications and their indications. It seemed that she would be compliant with her medications, as well as her diet, and followup with her appointment. She is well aware that she needs the Eliquis in order to prevent any thromboembolic events. Upon her discharge, she will follow with her primary, as well as with Dr. Erazo' and Dr. Joseph's office for further cardiac evaluation. She will need a basic metabolic profile (BMP) in about 7-10 days to check a BUN and creatinine and serum potassium. We have discussed about going home and that she is leaning toward leaving tomorrow, and she will be monitored 1 more day here on telemetry. It seemed that based on her response to the initial treatment, her LVEF might improve upon rechecking it within 3 months if she remains compliant and if she is able to tolerate current medications. [facility]EN[facility]
[2017-05-11 20:00] VITALS: BP 112/74
[2017-05-11 21:00] VITALS: BP 106/80
[2017-05-12] VITALS: BP 99/59
[2017-05-12 04:00] VITALS: BP 110/76
[2017-05-12] MEDS: SLF 3 ML SYR IV SCH (04:05)
[2017-05-12 08:00] VITALS: BP 114/57
[2017-05-12] MEDS: APIXABAN 5 MG TAB (ELIQUIS) PO SCH (08:20)
[2017-05-12] MEDS: TORSEMIDE 20 MG TAB PO SCH (08:20)
[2017-05-12] MEDS: DOCUSATE SODIUM 100 MG CAP PO SCH (08:20)
[2017-05-12] MEDS: ENTRESTO 24-26MG TABLET (SACUBITRIL/VALSARTAN) PO SCH (08:20)
[2017-05-12] MEDS: POTASSIUM CHLORIDE 10 MEQ SR TABLET PO SCH (08:20)
[2017-05-12] MEDS: DIGOXIN 0.25 MG TAB PO SCH (08:20)
[2017-05-12 08:23] VITALS: BP 114/57
[2017-05-12] MEDS: METOPROLOL SUCC (TopROL XL) 100MG *XL* TAB PO SCH (08:23)
[2017-05-12 12:00] VITALS: BP 118/64
[2017-05-12 14:27] LABS: CREATININE FOR GFR 1.13 MG/DL (0.55-1.02); GLOMERULAR FILTRATION RATE 53.4 (>51); POTASSIUM SERUM 4.6 MEQ/L (3.5-5.1)
[2017-05-12] MEDS ORDERED: DIGO0.25 PO (16:09)
[2017-05-12] MEDS ORDERED: ELIQ5TAB PO (16:09)
[2017-05-12] MEDS ORDERED: ENTR1TAB PO (16:09)
[2017-05-12] MEDS ORDERED: POTA10CA PO (16:09)
[2017-05-12] MEDS ORDERED: DEMA20TA6 PO (16:09)
[2017-05-12] MEDS ORDERED: METO1TAB33 PO (16:09)
--- NOTE | 2017-05-12 16:16 | DSES ---
DATE OF ADMISSION: 05/06/2017 DATE OF DISCHARGE: DISCHARGE DIAGNOSES: 1. Dilated cardiomyopathy. 2. Chronic systolic and diastolic heart failure. 3. Persistent atrial fibrillation. 4. Morbid obesity. 5. Snoring, abnormal nocturnal oximetry, suspected obstructive sleep apnea. HISTORY OF PRESENT ILLNESS: Gisela Rivas is a 52-year-old woman who was hospitalized to [facility] on 05/06/2017 after presenting with progressive dyspnea and bilateral leg swelling. She was discovered to have atrial fibrillation with rapid ventricular response and to be in decompensated biventricular heart failure. Please refer to the admission history and physical examination for further details. COURSE IN THE HOSPITAL: The patient received a course of IV furosemide and then was switched to torsemide. She was initially placed on an qrestcogulg-euieuuslcm-jbadgz (ERON) inhibitor and spironolactone, however, these agents were subsequently switched to Investa, which she tolerated well. She was placed on a beta willie (metoprolol succinate) and Digoxin for heart rate control, also for atrial fibrillation she was placed on Eliquis. At the time of discharge, the patient had clear lung zazueta, jugular venous pulse of 5 cm, 2 mm of bilateral leg & ankle edema, variable S1, normal S2, and reports absence of any exertional dyspnea walking the hallways. On the day of discharge , her weight was 130.4 kg. Last available basic medical profile on the day of discharge, 05/12/2017, showed sodium 141, potassium 4.6, chloride 102, CO2 of 32 , BUN 23, creatinine 1.13, estimated GFR 53.4, glucose 107 (nonfasting). She was not hyperthyroid. Laboratory work 05/06/2017 showed triglycerides 103, total cholesterol 110, LDL 61.4, non HDL cholesterol 82, HDL 28. TSH 3.290. DISCHARGE MEDICATIONS: - Eliquis 5 mg twice a day - Digoxin 0.25 mg daily - metoprolol succinate 200 mg daily - potassium chloride 20 mEq twice a day - Investa 24 mg/26 mg one tablet twice a day - torsemide 20 mg daily FOLLOWUP: 1. Followup with Dr. Joseph in approximately 1 week following discharge. 2. The patient is to be enrolled in cardiac rehabilitation. 3. Plan will be for outpatient referral to a sleep specialist for further workup of suspected obstructive sleep apnea. 4. Outpatient cardiac rehabilitation is planned. The patient was for now instructed to be on a more whole foods, plant-based diet , aiming to keep a sodium to calorie ratio of approximately 1.0 and an 1800 mL per day oral fluid restriction. Total time for preparation of this patient's discharge, including examining the patient, explaining the patient's medications, preparing prescriptions, reviewing all laboratory data, and reviewing and examining the patient and preparing this portion of the patient's medical record (discharge summary), was 35 minutes. (Level T2). MTDD
== END 2017-05-12 18:04 | disposition home or self-care (01) | DRG 194 ==
LOC: EDBD 09:54 → M ED 09:54 → M ED INP 19:04 → M PCU 05-07 13:27
PROVIDERS: ADMIT Internal Medicine Cardiovascular Disease; ATTEND Internal Medicine Cardiovascular Disease
DX: I50.43 Acute on chronic combined systolic (congestive) and diastolic (congestive) heart failure (principal); E87.3 Alkalosis; Z68.42 Body mass index [BMI] 45.0-49.9, adult; I27.29 Other secondary pulmonary hypertension; E66.01 Morbid (severe) obesity due to excess calories; I48.1 Persistent atrial fibrillation; I42.0 Dilated cardiomyopathy; G47.33 Obstructive sleep apnea (adult) (pediatric); I11.0 Hypertensive heart disease with heart failure; Z87.891 Personal history of nicotine dependence

== ENCOUNTER 2017-06-06 22:39 | Emergency (ER) | payer OTHER ==
[2017-06-07] MEDS: predniSONE 20 MG TAB PO (00:56)
== END 2017-06-07 01:06 | disposition home or self-care (01) ==
LOC: M ED 22:39
DX: M47.9 Spondylosis, unspecified (principal); I48.91 Unspecified atrial fibrillation; I10 Essential (primary) hypertension; Z87.891 Personal history of nicotine dependence
CPT/HCPCS: 72125

== ENCOUNTER → 2017-06-11 | Outpatient (CLI) | payer OTHER | LOC: M SLEEP 19:34 | DX: G47.33 Obstructive sleep apnea (adult) (pediatric) (principal) | CPT/HCPCS: 95810 ==

== ENCOUNTER → 2017-08-13 | Outpatient (CLI) | payer OTHER | LOC: M SLEEP 19:40 | DX: G47.33 Obstructive sleep apnea (adult) (pediatric) (principal) ==

== ENCOUNTER 2017-10-10 12:29 | Day surgery (SDC) | payer OTHER ==
[2017-10-10 13:05] LABS: INR 1.17; PROTHROMBIN TIME 15.1 SECONDS (12.4-14.5)
[2017-10-10] MEDS: LR 1,000 ML IV (13:27)
== END 2017-10-10 16:30 | disposition home or self-care (01) ==
LOC: M SDC 12:29
DX: I48.2 Chronic atrial fibrillation (principal); I11.9 Hypertensive heart disease without heart failure; R94.31 Abnormal electrocardiogram [ECG] [EKG]; I51.7 Cardiomegaly; G47.9 Sleep disorder, unspecified; I50.40 Unspecified combined systolic (congestive) and diastolic (congestive) heart failure; R51 Headache; R06.83 Snoring; G47.33 Obstructive sleep apnea (adult) (pediatric); E66.01 Morbid (severe) obesity due to excess calories; Z68.41 Body mass index [BMI] 40.0-44.9, adult; Z79.899 Other long term (current) drug therapy; Z79.01 Long term (current) use of anticoagulants; Z90.710 Acquired absence of both cervix and uterus; Z98.51 Tubal ligation status
CPT/HCPCS: 92960

== ENCOUNTER 2021-04-05 15:07 | Emergency (ER) | payer OTHER ==
[~2021-04-05] VITALS: Ht 180.3 cm; Wt 146.1 kg
[~2021-04-05 15:07] MED LIST: AMIO200T3 PO; ATEN100T PO; DEMA20TA6 PO; DIGO0.253 PO; ELIQ5TAB PO; ENTR1TAB PO; LOSA25TA14 PO; METO1TAB33 PO; ONE-TAB33 PO; POTA-136 PO; PRED20TA PO; SPIR-10 PO; TORS20TA2 PO
--- OUTSIDE RECORDS SUMMARY | 2021-04-05 15:13 | CCD ---
Author Author [facility] Organization [facility] Address Unknown Phone Unavailable Care Team Providers Care High Tension Tester Name Role Phone Maring, Bill PA Unavailable Unavailable Maring, Bill PA Unavailable Unavailable Maring, Bill PA Unavailable Unavailable Maring, Bill PA Unavailable Unavailable Maring, Bill PA Unavailable Unavailable Maring, Bill PA Unavailable Unavailable Maring, Bill PA Unavailable Unavailable Maring, Bill PA Unavailable Unavailable Maring, Bill PA Unavailable Unavailable Maring, Bill PA Unavailable Unavailable Maring, Bill PA Unavailable Unavailable Maring, Bill PA Unavailable Unavailable Maring, Bill PA Unavailable Unavailable Maring, Bill PA Unavailable Unavailable Maring, Bill PA Unavailable Unavailable Maring, Bill PA Unavailable Unavailable RAMÓN, L CLEVE PA Unavailable Unavailable RAMÓN, L CLEVE PA Unavailable Unavailable RAMÓN, L CLEVE PA Unavailable Unavailable RAMÓN, L CLEVE PA Unavailable Unavailable RAMÓN, L CLEVE PA Unavailable Unavailable RAMÓN, L CLEVE PA Unavailable Unavailable RAMÓN, L CLEVE PA Unavailable Unavailable RAMÓN, L CLEVE PA Unavailable Unavailable RAMÓN, L CLEVE PA Unavailable Unavailable RAMÓN, L CLEVE PA Unavailable Unavailable RAMÓN, L CLEVE PA Unavailable Unavailable RAMÓN, L CLEVE PA Unavailable Unavailable RAMÓN, L CLEVE PA Unavailable Unavailable RAMÓN, L CLEVE PA Unavailable Unavailable RAMÓN, L CLEVE PA Unavailable Unavailable RAMÓN, L CLEVE PA Unavailable Unavailable RAMÓN, L CLEVE PA Unavailable Unavailable RAMÓN, L CLEVE PA Unavailable Unavailable RAMÓN, L CLEVE PA Unavailable Unavailable RAMÓN, L CLEVE PA Unavailable Unavailable RAMÓN, L CLEVE PA Unavailable Unavailable RAÓMN, L CLEVE PA Unavailable Unavailable RAMÓN, L CLEVE PA Unavailable Unavailable RAMÓN, L CLEVE PA Unavailable Unavailable RAMÓN, L CLEVE PA Unavailable Unavailable RAMÓN, L CLEVE PA Unavailable Unavailable RAMÓN, L CLEVE PA Unavailable Unavailable RAMÓN, L CLEVE PA Unavailable Unavailable RAMÓN, L CLEVE PA Unavailable Unavailable RAMÓN, L CLEVE PA Unavailable Unavailable RAMÓN, L CLEVE PA Unavailable Unavailable RAMÓN, L CLEVE PA Unavailable Unavailable EMERTON, A BON MD Unavailable Unavailable EMERTON, A BON MD Unavailable Unavailable EMERTON, A BON MD Unavailable Unavailable EMERTON, A BON MD Unavailable Unavailable EMERTON, A BON Unavailable Unavailable EMERTON, A BON Unavailable Unavailable EMERTON, A BON MD Unavailable Unavailable EMERTON, A BON MD Unavailable Unavailable EMERTON, A BON MD Unavailable Unavailable EMERTON, A BON MD Unavailable Unavailable EMERTON, A BON MD Unavailable Unavailable EMERTON, A BON MD Unavailable Unavailable EMERTON, A BON MD Unavailable Unavailable EMERTON, A BON MD Unavailable Unavailable EMERTON, A BON MD Unavailable Unavailable EMERTON, A BON MD Unavailable Unavailable EMERTON, A BON MD Unavailable Unavailable EMERTON, A BON MD Unavailable Unavailable EMERTON, A BON MD Unavailable Unavailable EMERTON, A BON MD Unavailable Unavailable EMERTON, A BON MD Unavailable Unavailable EMERTON, A BON MD Unavailable Unavailable EMERTON, A BON MD Unavailable Unavailable EMERTON, A BON MD Unavailable Unavailable EMERTON, A BON MD Unavailable Unavailable EMERTON, A BON MD Unavailable Unavailable EMERTON, A BON MD Unavailable Unavailable EMERTON, A BON MD Unavailable Unavailable EMERTON, A BON MD Unavailable Unavailable EMERTON, A BON MD Unavailable Unavailable EMERTON, A BON MD Unavailable Unavailable EMERTON, A BON MD Unavailable Unavailable EMERTON, A BON MD Unavailable Unavailable EMERTON, A BON MD Unavailable Unavailable EMERTON, A BON MD Unavailable Unavailable EMERTON, A BON MD Unavailable Unavailable EMERTON, A BON MD Unavailable Unavailable EMERTON, A BON MD Unavailable Unavailable EMERTON, A BON MD Unavailable Unavailable EMERTON, A BON MD Unavailable Unavailable EMERTON, A BON MD Unavailable Unavailable EMERTON, A BON MD Unavailable Unavailable EMERTON, A BON MD Unavailable Unavailable EMERTON, A BON MD Unavailable Unavailable EMERTON, A BON MD Unavailable Unavailable EMERTON, A BON MD Unavailable Unavailable EMERTON, A BON MD Unavailable Unavailable EMERTON, A BON MD Unavailable Unavailable EMERTON, A BON MD Unavailable Unavailable EMERTON, A BON MD Unavailable Unavailable EMERTON, A BON MD Unavailable Unavailable EMERTON, A BON MD Unavailable Unavailable EMERTON, A BON MD Unavailable Unavailable EMERTON, A BON MD Unavailable Unavailable EMERTON, A BON MD Unavailable Unavailable EMERTON, A BON MD Unavailable Unavailable EMERTON, A BON MD Unavailable Unavailable EMERTON, A BON MD Unavailable Unavailable EMERTON, A BON MD Unavailable Unavailable EMERTON, A BON MD Unavailable Unavailable EMERTON, A BON MD Unavailable Unavailable EMERTON, A BON MD Unavailable Unavailable EMERTON, A BON MD Unavailable Unavailable EMERTON, A BON MD Unavailable Unavailable EMERTON, A BON MD Unavailable Unavailable EMERTON, A BON MD Unavailable Unavailable EMERTON, A BON MD Unavailable Unavailable EMERTON, A BON MD Unavailable Unavailable EMERTON, A BON MD Unavailable Unavailable EMERTON, A BON MD Unavailable Unavailable EMERTON, A BON MD Unavailable Unavailable EMERTON, A BON MD Unavailable Unavailable EMERTON, A BON MD Unavailable Unavailable EMERTON, A BON MD Unavailable Unavailable EMERTON, A BON MD Unavailable Unavailable EMERTON, A BON MD Unavailable Unavailable EMERTON, A BON MD Unavailable Unavailable Re-disclosure Warning The records that you are about to access may contain information from federally-assisted alcohol or drug abuse programs. If such information is present, then the following federally mandated warning applies: This information has been disclosed to you from records protected by federal confidentiality rules (42 CFR part 2). The federal rules prohibit you from making any further disclosure of this information unless further disclosure is expressly permitted by the written consent of the person to whom it pertains or as otherwise permitted by 42 CFR part 2. A general authorization for the release of medical or other information is NOT sufficient for this purpose. The Federal rules restrict any use of the information to criminally investigate or prosecute any alcohol or drug abuse patient.The records that you are about to access may contain highly sensitive health information, the redisclosure of which is protected by Article 27-F of the [facility] Public Health law. If you continue you may have access to information: Regarding HIV / AIDS; Provided by facilities licensed or operated by the [facility] Office of Mental Health; or Provided by the [facility] Office for People With Developmental Disabilities. If such information is present, then the following [facility] mandated warning applies: This information has been disclosed to you from confidential records which are protected by state law. State law prohibits you from making any further disclosure of this information without the specific written consent of the person to whom it pertains, or as otherwise permitted by law. Any unauthorized further disclosure in violation of state law may result in a fine or fci sentence or both. A general authorization for the release of medical or other information is NOT sufficient authorization for further disc losure. Allergies and Adverse Reactions Type Description Substance Reaction Status Data Source(s ) No Known Drug Allergies No Known Drug Allergies [facility] Family History Family Member Name Family Member Gender Family Member Status Date o f Status Description Data Source(s) Unknown Male Problem [facility] ([facility]) Encounters Encounter Providers Location Date Indications Data Source(s ) Outpatient Attender: Bill HERNÁNDEZ 04/05/20 21 01:08:14 PM EDT - 2021 02:33:05 PM EDT [facility] ([facility] ) Outpatient Attender: CLEVE HERNÁNDEZ Main Office 12/13/2020 0 8:15:00 AM EDT [facility] ([facility]) Outpatient Attender: CLEVE MELGAR PAConsultant: BON BONILLA MD 07/19/2020 11:43:00 AM EST - 07/19/2020 12:43:00 PM EST [facility] Outpatient Attender: CLEVE HERNÁNDEZ Main Office 06/14/2020 0 7:00:00 AM EST [facility] ([facility]) Medications Medication Brand Name Start Date Product Form Dose Route Admi nistrative Instructions Pharmacy Instructions Status Indications Reaction Description Data Source(s) Cholecalciferol 1000 UNT Oral Tablet Vitamin D 06/13/2020 12:00:00 A M EST ORAL active [facility] ([facility]) Insurance Providers Payer name Policy type / Coverage type Policy ID Covered libertarian ID Covered libertarian's relationship to rhodes Policy [place] Plan Information AETNA U [id number] Self [id number] [place]ET[place] xxxxxxxxxx [place] [id number] SP [id number] [place] [id number] SP [id number] AETNA [id number] [place] [id number] INSURANCE COVID-19 COVID Mariam C OVID INSURANCE COVID-19 COVID [place]am C OVID INSURANCE COVID-19 [id number] INSURANCE COVID-19 COVID [place]am C OVID INSURANCE COVID-19 COVID [place]am C OVID [employer] [id number] Self [id number] [employer] Commercial [id number] Self [id number] [employer] Commercial [id number] Self [id number] [employer] Commercial [id number] Self [id number] [employer] Commercial [id number] Self [id number] [employer] Commercial [id number] Self [id number] [employer] [place] [id number] S [id number] [employer] Commercial [id number] Self [id number] [employer] Commercial [id number] Self [id number] AETNA [facility] [place] [id number] SP [id number] AETNA [facility] O [id number] S [id number] AETNA-[place] [id number] 18 [id number] AETNA-O/P [id number] [employer] Commercial [id number] Self [id number] [employer] Commercial [id number] Self [id number] [employer] Commercial [id number] Self [id number] [employer] Commercial [id number] Self [id number] AETNA PI PI [employer] Commercial [id number] Self [id number] AETNA [facility] [place] [id number] SP [id number] [employer] Commercial [id number] Self [id number] [employer] Commercial [id number] Self [id number] Problems, Conditions, and Diagnoses Code Display Name Description Problem Type Effective Dates Data Source(s) I110 Hypertensive heart disease with heart fa ilure Hypertensive heart disease with heart failure Diagnosis 07/19/2020 11:43:00 AM [facility] E66.09 Obesity Obesity Problem 06/14/2020 12:00:00 AM TIFFANIE LUNSFORD ([facility]) Surgeries/Procedures Procedure Description Date Indications Data Source(s) External ECG Rec>48HR<7D Recording 12/22/2020 12:00:00 AM EDT [facility] ([facility]) External ECG Rec>48HR<7D Review & Interpretation 12/22 12:00:00 AM EDT [facility] ([facility]) ECG ROUTINE ECG W/LEAST 12 LDS W/I&R 12/13/2020 12:00: 00 AM EDT [facility] ([facility]) OFFICE OUTPATIENT VISIT 25 MINUTES 12/13/2020 12:00:00 AM EDT [facility] ([facility]) ECG ROUTINE ECG W/LEAST 12 LDS W/I&R 06/14/2020 12:00: 00 AM EST [facility] ([facility]) Electrocardiogram Complete 04/10/2020 12:00:00 AM EST [facility] ([facility]) Results ID Date Data Source [id number] 07/19/2020 11:48:00 AM EST [facility] ([facility] Name Value Range Interpretation Code Description Data Rachell rce(s) Supporting Document(s) CBC W/Automated Diff Laboratory test result [facility] ([facility]) Is patient fasting? N WBC 5.1 10^3/uL 4.2-11.0 [facility] ([facility]) Is patient fasting? N RBC 4.24 10^6/uL 4.20-5.40 [facility] ([facility]) Is patient fasting? N Hemoglobin 13.0 g/dL 12.0-16.0 [facility] ([facility]) Is patient fasting? N Hematocrit 38.7 % 37.0-47.0 [facility] ([facility]) Is patient fasting? N MCV 91.3 fL 81.0-101 [facility] Is patient fasting? N MCHC 33.6 g/dL 31.0-36.0 [facility] ([facility] Is patient fasting? N MCH 30.7 pg 27.0-34.0 [facility] Is patient fasting? N Platelets 238 10^3/uL 150-450 [facility] ([facility]) Is patient fasting? N RDW 12.8 % 11.5-14.5 [facility] Is patient fasting? N MPV 10.1 fL 7.4-10.4 [facility] Is patient fasting? N Lymph 29.4 % 25.0-40.0 [facility] Is patient fasting? N Neut 56.0 % 37.0-80.0 [facility] Is patient fasting? N Eos 2.1 % 0.0-7.0 [facility] Is patient fasting? N Bourbon 11.1 % 3.0-8.0 [facility] ([facility] Is patient fasting? N %NRBC 0.0 % 0.0-0.0 [facility] ([facility] Is patient fasting? N %Ig 0.6 % 0.0-0.0 [facility] Is patient fasting? N Baso 0.8 % 0.0-2.5 [facility] ([facility] Is patient fasting? N #Neut 2.87 10^3/uL 2.00-6.90 [facility] ([facility]) Is patient fasting? N #Lymph 1.51 10^3/uL 0.60-3.40 [facility] ([facility] Is patient fasting? N #Eos 0.11 10^3/uL 0.00-0.70 [facility] ([facility]) Is patient fasting? N #Bourbon 0.57 10^3/uL 0.00-0.90 [facility] ([facility]) Is patient fasting? N #Ig 0.03 10^3/uL 0.00-0.10 [facility] ([facility]) Is patient fasting? N #Baso 0.04 10^3/uL 0.00-0.20 [facility] ([facility]) Is patient fasting? N #NRBC 0.00 10^3/uL 0.00-0.00 [facility] ([facility]) Is patient fasting? N Manual Diff Laboratory test result MEDEN T ([facility]) Is patient fasting? N RBC Morph Laboratory test result [facility] ([facility]) Is patient fasting? N ID Date Data Source [id number] 07/19/2020 11:48:00 AM EST [facility] ([facility]) Name Value Range Interpretation Code Description Data Rachell rce(s) Supporting Document(s) Comprehensive Metabo Laboratory test result [facility] ([facility]) Is patient fasting? N Sodium 138 meq/L 134-153 [facility] Is patient fasting? N Potassium 4.4 meq/L 3.6-5.0 [facility] ([facility] Is patient fasting? N Chloride 100 meq/L 98-107 [facility]) Is patient fasting? N Co2 29 meq/L 22-30 [facility] Is patient fasting? N Glucose 95 mg/dL 70-99 [facility] ([facility] Is patient fasting? N Creatinine 0.7 mg/dL 0.7-1.5 [facility] ([facility]) Is patient fasting? N BUN 22 mg/dL 7-21 [facility] ([facility] Is patient fasting? N Total Protein 7.4 g/dL 6.3-8.2 [facility] ([facility]) Is patient fasting? N Albumin 4.4 g/dL 3.9-5.0 [facility] ([facility]) Is patient fasting? N BUN/Creat 31 8-27 [facility] ([facility] Is patient fasting? N Globulin 3.0 GM/DL 2.4-3.2 [facility] ([facility] Is patient fasting? N A/G Ratio 1.5 0.8-2.0 [facility] ([facility]) Is patient fasting? N Calcium 9.5 mg/dL 8.4-10.2 [facility] ([facility]) Is patient fasting? N Alkaline Phos 75 U/L 38-126 [facility] ([facility]) Is patient fasting? N Total Bili 1.3 mg/dL 0.2-1.3 [facility] ([facility]) Is patient fasting? N Sgot/Ast 18 U/L 5-40 [facility] ([place]) Is patient fasting? N Anion Gap 9.0 mmol/L 8.0-16.0 [facility] ([facility]) Is patient fasting? N SGPT/Alt 20 U/L 7-56 [facility] ([place]) Is patient fasting? N Non-Aa GFR Laboratory test result [facility] ([facility]) Is patient fasting? N Afr Amer GFR Laboratory test result MEDE NT ([facility]) Is patient fasting? N Age 55 yrs [facility] ([place]) Is patient fasting? N ID Date Data Source [id number] 07/19/2020 12:49:00 PM EST [facility] Name Value Range Interpretation Code Description Data Rachell rce(s) Supporting Document(s) CBC W/AUTOMATED DIFF [facility] COMPLETE BLOOD COUNT Leukocytes [#/volume] in Blood by Automated count 5.1 10^3/uL 4.2 - 1 1.0 [facility] Erythrocytes [#/volume] in Blood by Automated count 4.24 10^6/uL 4. 20 - 5.40 [facility] Hemoglobin [Mass/volume] in Blood 13.0 g/dL 12.0 - 16.0 [facility] Hematocrit [Volume Fraction] of Blood by Automated count 38.7 % 3 7.0 - 47.0 [facility] Erythrocyte mean corpuscular volume [Entitic volume] by Auto mated count 91.3 fL 81.0 - 101 [facility] Erythrocyte mean corpuscular hemoglobin [Entitic mass] by Automated count 30.7 pg 27.0 - 34.0 [facility] Erythrocyte mean corpuscular hemoglobin concentration [Mass/volume] by Automated count 33.6 g/dL 31.0 - 36.0 [facility] Erythrocyte distribution width [Ratio] by Automated count 12.8 % 11.5 - 14.5 [facility] Platelets [#/volume] in Blood by Automated count 238 10^3/uL 150 - 45 0 [facility] Platelet mean volume [Entitic volume] in Blood by Automated count 10.1 fL 7.4 - 10.4 [facility] Neutrophils/100 leukocytes in Blood by Automated count 56.0 % 37. 0 - 80.0 [facility] Lymphocytes/100 leukocytes in Blood by Manual count 29.4 % 25.0 - 40.0 [facility] Monocytes/100 leukocytes in Blood by Automated count 11.1 % 3.0 - 8.0 H [facility] Eosinophils/100 leukocytes in Blood by Automated count 2.1 % 0.0 - 7.0 [facility] Basophils/100 leukocytes in Blood by Automated count 0.8 % 0.0 - 2.5 [facility] %IG 0.6 % 0.0 - 0.0 H [facility] %NRBC 0.0 % 0.0 - 0.0 [facility] Neutrophils [#/volume] in Blood by Automated count 2.87 10^3/uL 2.00 - 6.90 [facility] Lymphocytes [#/volume] in Blood by Automated count 1.51 10^3/uL 0.60 - 3.40 [facility] Monocytes [#/volume] in Blood by Automated count 0.57 10^3/uL 0.00 - 0.90 [facility] Eosinophils [#/volume] in Blood by Automated count 0.11 10^3/uL 0.00 - 0.70 [facility] Basophils [#/volume] in Blood by Automated count 0.04 10^3/uL 0.00 - 0.20 [facility] #IG 0.03 10^3/uL 0.00 - 0.10 [facility] ospital #NRBC 0.00 10^3/uL 0.00 - 0.00 [facility]ital MANUAL DIFF NOT INDICATED [facility] RBC MORPH NOT INDICATED [facility]ital ID Date Data Source [id number] 07/19/2020 12:47:00 PM EST [facility] Name Value Range Interpretation Code Description Data Rachell rce(s) Supporting Document(s) COMPREHENSIVE METABOLIC PANEL [facility] COMPREHENSIVE METABOLIC PANEL Sodium [Moles/volume] in Serum or Plasma 138 mEq/L 134 - 153 [facility] Potassium [Moles/volume] in Serum or Plasma 4.4 mEq/L 3.6 - 5.0 [facility] Chloride [Moles/volume] in Serum or Plasma 100 mEq/L 98 - 107 [facility] Carbon dioxide, total [Moles/volume] in Serum or Plasma 29 MEQ/L 22 - 30 [facility] Glucose [Mass/volume] in Serum or Plasma 95 MG/DL 70 - 99 [facility] BUN 22 MG/DL 7 - 21 H [facility] Creatinine [Mass/volume] in Serum or Plasma 0.7 MG/DL 0.7 - 1.5 [facility] BUN/CREAT 31 8 - 27 H [facility] Protein [Mass/volume] in Serum or Plasma 7.4 G/DL 6.3 - 8.2 [facility] Albumin [Mass/volume] in Serum or Plasma 4.4 G/DL 3.9 - 5.0 [facility] Globulin [Mass/volume] in Serum by calculation 3.0 GM/DL 2.4 - 3.2 [facility] A/G RATIO 1.5 0.8 - 2.0 [facility] Calcium [Mass/volume] in Serum or Plasma 9.5 MG/DL 8.4 - 10.2 [facility] Bilirubin.total [Mass/volume] in Serum or Plasma 1.3 MG/DL 0.2 - 1.3 [facility] Alkaline phosphatase [Enzymatic activity/volume] in Serum or Plasma 75 U/L 38 - 126 [facility] Aspartate aminotransferase [Enzymatic activity/volume] in Serum or Plasma 18 U/L 5 - 40 [facility] Alanine aminotransferase [Enzymatic activity/volume] in Seru m or Plasma 20 U/L 7 - 56 [facility] Anion gap 3 in Serum or Plasma 9.0 mmol/L 8.0 - 16.0 [facility] AGE 55 yrs [facility] NON-AA GFR >60 mL/min [facility] ital AFR AMER GFR >60 mL/min [facility] Male GFR In terprentation 20-49 yrs >60 mL/min Normal 50-59 yrs >56 mL/min Normal 60-69 yrs >49 mL/min Normal 70-79yrs >42 mL/min Normal 80 and above >35 mL/min Normal Female GFR Interpretation 20-39 yrs >60 mL/min Normal 40-49 yrs >58 mL/min Normal 50-59 yrs >51 mL/min Normal 60-69 yrs >45 mL/min Normal 70-79 yrs >39 mL/min Normal 80 and above >32 mL/min Normal Procedure Social History Code Duration Value Status Description Data Source(s ) Smoking 12/13/2020 12:00:00 AM EDT Patient is a former smoker completed Patient is a former smoker [facility] ([facility]) Vital Signs ID Date Data Source UNK Name Value Range Interpretation Code Description Data Source(s) Systolic blood pressure--sitting 126 mm[Hg] 126 mm[Hg] [facility] ([facility]) Ra, large cuff Body weight 312.00 [lb_av] 312.00 [lb_av] [facility] T ([facility]) Body height 71 [in_i] 71 [in_i] [facility] 5'11" Body mass index (BMI) [Ratio] 43.5 kg/m2 43.5 k g/m2 [facility] ([facility]) Heart rate 59 /min 59 /min [facility] ([facility]) Diastolic blood pressure--sitting 74 mm[Hg] 74 mm[Hg] [facility] ([facility]) Ra, large cuff Body height 71 [in_i] 71 [in_i] [facility] ([facility]) 5'11" Body mass index (BMI) [Ratio] 43.5 kg/m2 43.5 k g/m2 [facility] ([facility]) Heart rate 57 /min 57 /min [facility] ([facility]) Systolic blood pressure--sitting 110 mm[Hg] 110 mm[Hg] [facility] ([facility]) large cuff, Ra Diastolic blood pressure--sitting 66 mm[Hg] 66 mm[Hg] [facility] ([facility]) large cuff, Ra Body weight 312.00 [lb_av] 312.00 [lb_av] [facility] T ([facility]) Systolic blood pressure 110 mm[Hg] 110 mm[Hg] M [facility] ([facility] [facility]) Diastolic blood pressure 66 mm[Hg] 66 mm[Hg] MEDENT ([facility] Heart rate 68 /min 68 /min [facility] ([facility] Body weight 315.00 [lb_av] 315.00 [lb_av] MEDEN T ([facility] Body height 71 [in_i] 71 [in_i] MEDEMILIANO ([facility] 5'11" Body mass index (BMI) [Ratio] 43.9 kg/m2 43.9 k g/m2 [facility] Oxygen saturation in Arterial blood by Pulse oximetry 98 % 98 % [facility] Body surface area Derived from formula 2.56 m2 2.56 m2 [facility] ([facility])
[2021-04-05 17:45] LABS: HEMATOCRIT 40.1 % (36.0-47.0); MEAN CORPUSCULAR HEMOGLOBIN 30.6 pg (27.0-33.0); MEAN CORPUSCULAR HGB CONC 32.4 g/dl (32.0-36.5); MEAN CORPUSCULAR VOLUME 94.4 fl (80.0-96.0); PLATELET COUNT, AUTOMATED 235 10^3/uL (150-450); RED BLOOD COUNT 4.25 10^6/uL (4.00-5.40); WHITE BLOOD COUNT 6.2 10^3/uL (4.0-10.0)
[2021-04-05 18:05] LABS: BLOOD UREA NITROGEN 23 MG/DL (7-18); CALCIUM LEVEL 9.3 MG/DL (8.5-10.1); CARBON DIOXIDE LEVEL 29 MEQ/L (21-32); CHLORIDE LEVEL 105 MEQ/L (98-107); GLOMERULAR FILTRATION RATE > 60.0 (>51); GLUCOSE, FASTING 90 MG/DL (70-100); POTASSIUM SERUM 4.4 MEQ/L (3.5-5.1); SODIUM LEVEL 141 MEQ/L (136-145)
--- NOTE | 2021-04-05 20:51 | REPVR ---
PROCEDURE INFORMATION: Exam: US Duplex Right Lower Extremity Veins, Limited Exam date and time: 04/05/2021 8:06 PM Age: 56 years old Clinical indication: Pain; Leg, lower; Right TECHNIQUE: Imaging protocol: Real-time Duplex ultrasound of the Right Lower Extremity with 2-D douglass scale, color Doppler flow and spectral waveform analysis with image documentation. Limited exam was focused on the right lower extremity veins. COMPARISON: No relevant prior studies available. FINDINGS: Right deep veins: Suboptimal visualization of the calf veins. The common femoral, femoral and popliteal veins are patent without thrombus. Normal Doppler waveforms. Normal compressibility and/or augmentation response. Right superficial veins: Unremarkable. Saphenofemoral junction is patent without thrombus. Soft tissues: Subcutaneous edema in the calf. IMPRESSION: No sonographic evidence of deep vein thrombosis. Electronically signed by: Dilip Cannon On 04/05/2021 20:50:56 PM
[2021-04-05 21:39] VITALS: BP 130/70
== END 2021-04-05 21:41 | disposition home or self-care (01) ==
LOC: M ED 15:07
DX: M79.604 Pain in right leg (principal); I48.91 Unspecified atrial fibrillation; G47.30 Sleep apnea, unspecified; Z79.01 Long term (current) use of anticoagulants; Z79.899 Other long term (current) drug therapy; Z98.890 Other specified postprocedural states

== ENCOUNTER → 2021-07-18 | Outpatient (CLI) | payer OTHER ==
[~2021-07-18] MED LIST changes: -AMIO200T3 PO; +AMIO200T49 PO; +LOSA25TA13 PO; -LOSA25TA14 PO
[2021-07-18 15:39] LABS: BASO % 0.7 % (0.0-1.0); EOS # 0.1 10^3/uL (0.0-0.5); EOS % 2.1 % (0.0-3.0); HEMATOCRIT 41.8 % (36.0-47.0); HEMOGLOBIN 13.4 g/dl (12.0-15.5); LYMPH # 1.8 10^3/uL (1.5-5.0); LYMPH % 30.9 % (24.0-44.0); MEAN CORPUSCULAR HEMOGLOBIN 30.3 pg (27.0-33.0); MEAN CORPUSCULAR HGB CONC 32.1 g/dl (32.0-36.5); MEAN CORPUSCULAR VOLUME 94.6 fl (80.0-96.0); MONO # 0.6 10^3/uL (0.0-0.8); MONO % 10.2 % (2.0-8.0); NEUTROPHILS # 3.2 10^3/uL (1.5-8.5); NEUTROPHILS % 55.6 % (36.0-66.0); PLATELET COUNT, AUTOMATED 262 10^3/uL (150-450); RED BLOOD COUNT 4.42 10^6/uL (4.00-5.40); WHITE BLOOD COUNT 5.7 10^3/uL (4.0-10.0)
[2021-07-18 15:58] LABS: BLOOD UREA NITROGEN 19 MG/DL (7-18); CALCIUM LEVEL 9.3 MG/DL (8.5-10.1); CARBON DIOXIDE LEVEL 32 MEQ/L (21-32); CHLORIDE LEVEL 105 MEQ/L (98-107); CREATININE FOR GFR 0.98 MG/DL (0.55-1.30); GLOMERULAR FILTRATION RATE > 60.0 (>51); GLUCOSE, FASTING 90 MG/DL (70-100); MAGNESIUM LEVEL 1.9 MG/DL (1.8-2.4); POTASSIUM SERUM 4.9 MEQ/L (3.5-5.1); SODIUM LEVEL 143 MEQ/L (136-145)
== END ==
LOC: M PLALAB 12:14
PROVIDERS: ATTEND Physician Assistant
DX: I11.0 Hypertensive heart disease with heart failure (principal)

== ENCOUNTER → 2022-01-31 | Outpatient (CLI) | payer OTHER | LOC: M WUC 09:10 | PROVIDERS: ATTEND Family Medicine | DX: M17.11 Unilateral primary osteoarthritis, right knee (principal); M25.461 Effusion, right knee ==

== ENCOUNTER → 2022-09-27 | Outpatient (CLI) | payer OTHER ==
[2022-09-27 12:19] LABS: BASO # 0.1 10^3/uL (0.0-0.2); BASO % 1.2 % (0.0-1.0); EOS # 0.1 10^3/uL (0.0-0.5); EOS % 2.4 % (0.0-3.0); HEMOGLOBIN 12.4 g/dl (12.0-15.5); LYMPH # 1.6 10^3/uL (1.5-5.0); LYMPH % 31.3 % (24.0-44.0); MEAN CORPUSCULAR HEMOGLOBIN 30.7 pg (27.0-33.0); MEAN CORPUSCULAR HGB CONC 32.6 g/dl (32.0-36.5); MEAN CORPUSCULAR VOLUME 94.1 fl (80.0-96.0); MONO # 0.6 10^3/uL (0.0-0.8); MONO % 12.1 % (2.0-8.0); NEUTROPHILS # 2.6 10^3/uL (1.5-8.5); NEUTROPHILS % 52.4 % (36.0-66.0); PLATELET COUNT, AUTOMATED 216 10^3/uL (150-450); RED BLOOD COUNT 4.04 10^6/uL (4.00-5.40)
[2022-09-27 12:44] LABS: ALBUMIN 3.5 G/DL (3.2-5.2); ALKALINE PHOSPHATASE 75 U/L (46-116); ALT/SGPT 19 U/L (7.0-40); AST/SGOT 11 U/L (<34); BILIRUBIN,TOTAL 1.2 MG/DL (0.3-1.2); BLOOD UREA NITROGEN 24 MG/DL (9-23); CALCIUM LEVEL 8.5 MG/DL (8.5-10.1); CARBON DIOXIDE LEVEL 33 MMOL/L (20-31); CHLORIDE LEVEL 105 MMOL/L (98-107); CHOLESTEROL LEVEL 173 MG/DL (<200); CHOLESTEROL RISK RATIO 5.19 (<5); GLOMERULAR FILTRATION RATE > 60.0 (>51); GLUCOSE, FASTING 74 MG/DL (60-100); HDL CHOLESTEROL 33.3 MG/DL (>40); LDL CHOLESTEROL 89.9 MG/DL (<100); MAGNESIUM LEVEL 1.8 MG/DL (1.8-2.4); NON-HDL-C 139.7 MG/DL; POTASSIUM SERUM 4.2 MMOL/L (3.5-5.1); SODIUM LEVEL 141 MMOL/L (136-145); TOTAL PROTEIN 6.3 G/DL (5.7-8.2); TRIGLYCERIDES LEVEL 249 MG/DL (<150)
== END ==
LOC: M RAD 09:59
PROVIDERS: ATTEND Internal Medicine Cardiovascular Disease
DX: R06.02 Shortness of breath (principal); I50.32 Chronic diastolic (congestive) heart failure; I11.0 Hypertensive heart disease with heart failure; R94.31 Abnormal electrocardiogram [ECG] [EKG]; I35.1 Nonrheumatic aortic (valve) insufficiency; I48.0 Paroxysmal atrial fibrillation

== ENCOUNTER 2023-10-10 14:18 | Emergency (ER) | payer OTHER ==
[~2023-10-10] VITALS: Ht 180.3 cm; Wt 140.5 kg
[2023-10-10 14:20] VITALS: BP 143/66; TEMP 98.2; O2SAT 96
[2023-10-10] MEDS ORDERED: MULT-90 PO (14:30)
[2023-10-10] MEDS: DERMABOND TOPICAL SKIN ADHESIVE TOP ONE (16:29)
== END 2023-10-10 16:45 | disposition home or self-care (01) ==
LOC: M ED 14:18
DX: S60.417A Abrasion of left little finger, initial encounter (principal); Y92.9 Unspecified place or not applicable; Y93.9 Activity, unspecified; Y99.0 Civilian activity done for income or pay; Z79.810 Long term (current) use of selective estrogen receptor modulators (SERMs); Z79.899 Other long term (current) drug therapy

== ENCOUNTER → 2023-11-10 | Outpatient (REF) | payer OTHER ==
[~2023-11-10] MED LIST changes: +MULT-90 PO
[2023-11-10 19:09] LABS: BASO % 0.6 % (0.0-1.0); EOS # 0.1 10^3/uL (0.0-0.5); EOS % 2.3 % (0.0-3.0); HEMATOCRIT 38.6 % (36.0-47.0); HEMOGLOBIN 12.4 g/dl (12.0-15.5); LYMPH # 1.3 10^3/uL (1.5-5.0); LYMPH % 20.8 % (24.0-44.0); MEAN CORPUSCULAR HEMOGLOBIN 30.1 pg (27.0-33.0); MEAN CORPUSCULAR HGB CONC 32.1 g/dl (32.0-36.5); MEAN CORPUSCULAR VOLUME 93.7 fl (80.0-96.0); MONO # 0.6 10^3/uL (0.0-0.8); MONO % 9.9 % (2.0-8.0); NEUTROPHILS # 4.1 10^3/uL (1.5-8.5); NEUTROPHILS % 66.1 % (36.0-66.0); PLATELET COUNT, AUTOMATED 225 10^3/uL (150-450); RED BLOOD COUNT 4.12 10^6/uL (4.00-5.40); WHITE BLOOD COUNT 6.2 10^3/uL (4.0-10.0)
== END ==
LOC: M LABWUC 16:43
PROVIDERS: ATTEND Nurse Practitioner Family
DX: M79.672 Pain in left foot (principal)

== ENCOUNTER → 2023-12-03 | Outpatient (CLI) | payer OTHER ==
[2023-12-03 15:02] LABS: ALBUMIN 3.8 G/DL (3.2-5.2); ALKALINE PHOSPHATASE 70 U/L (46-116); ALT/SGPT 22 U/L (7.0-40); AST/SGOT 9 U/L (<34); BILIRUBIN,TOTAL 0.9 MG/DL (0.3-1.2); BLOOD UREA NITROGEN 20 MG/DL (9-23); CARBON DIOXIDE LEVEL 28 MMOL/L (20-31); CHLORIDE LEVEL 108 MMOL/L (98-107); CREATININE FOR GFR 0.84 MG/DL (0.55-1.30); GLOMERULAR FILTRATION RATE > 60.0 (>45); GLUCOSE, FASTING 81 MG/DL (74-106); POTASSIUM SERUM 4.3 MMOL/L (3.5-5.1); SODIUM LEVEL 141 MMOL/L (136-145); TOTAL PROTEIN 6.4 G/DL (5.7-8.2)
== END ==
LOC: M LAB 14:05
PROVIDERS: ATTEND Internal Medicine Cardiovascular Disease
DX: I50.32 Chronic diastolic (congestive) heart failure (principal); I11.0 Hypertensive heart disease with heart failure

== ENCOUNTER → 2024-10-01 | Outpatient (CLI) | payer OTHER | LOC: M PLAIMG 14:20 | PROVIDERS: ATTEND Internal Medicine Cardiovascular Disease | DX: I77.810 Thoracic aortic ectasia (principal) ==